=== PATIENT | female | born 1975 | race Two or more races ===

== ENCOUNTER 2022-03-18 13:53 | Emergency (ER) | payer OTHER ==
[~2022-03-18] VITALS: Ht 157.5 cm; Wt 57.6 kg
[2022-03-18] MEDS ORDERED: CLARITIN10 MG PO (14:14)
== END 2022-03-18 19:58 | disposition home or self-care (01) ==
LOC: ER 13:53
DX: E86.0 Dehydration (principal); R11.10 Vomiting, unspecified